=== PATIENT | female | born 1955 | race Caucasian/White ===

== ENCOUNTER → 2020-08-20 11:15 | Outpatient (CLI) | payer MEDICARE, SELFPAY ==
--- NOTE | 2020-08-20 11:26 | XR_ITS ---
PROCEDURE: XR CHEST 2V CLINICAL HISTORY: COUGH COMPARISON: No exams were available for comparison FINDINGS: The cardiomediastinal silhouette and pulmonary vascularity are within normal limits. The lungs are clear without infiltrates, suspicious nodules, or pleural effusions. Minimal midthoracic curvature convex left. IMPRESSION: No acute findings. Dictated by: Gurjit Sánchez MD 08/20/2020 11:51 Gurjit Sánchez MD in [place] 08/20/2020 11:51
== END ==
PROVIDERS: PCP Nurse Practitioner Family; Visit Provider Nurse Practitioner Family
DX: R05 Cough (principal)
CPT/HCPCS: 71046

== ENCOUNTER → 2021-10-19 09:31 | Outpatient (CLI) | payer MEDICARE, SELFPAY ==
--- NOTE | 2021-10-19 09:39 | XR_ITS ---
FINAL REPORT CLINICAL HISTORY: LT KNEE PAIN,LOCALIZED EDEMA..fell in water drain 2 weeks ago FINDINGS: Three views of the left knee reveal no evidence of fracture or dislocation. The bony alignment is normal. The joint spaces are preserved. There is no evidence of joint effusion. There is medial soft tissue swelling. IMPRESSION: Swelling with no acute bony abnormality. Reviewed, Interpreted and Dictated by Valerio Hdz III, MD Transcribed by Jefferson Peña Authenticated and [facility]
== END ==
PROVIDERS: PCP Family Medicine; Visit Provider Nurse Practitioner Family
DX: M25.562 Pain in left knee (principal); R60.0 Localized edema
CPT/HCPCS: 73562

== ENCOUNTER 2024-01-22 16:56 | Emergency (ER) | payer MEDICARE, SELFPAY ==
--- NOTE | 2024-01-22 17:09 | XR_ITS ---
PROCEDURE INFORMATION: Exam: XR Right Hand Exam date and time: 01/22/2024 5:15 PM Age: 69 years old Clinical indication: Injury or trauma; Other: Pin went into finger, unsure if part of pin is still in there or not; Puncture; Right; Index finger; Additional info: Pin stuck in finger TECHNIQUE: Imaging protocol: Radiologic exam of the right hand. Views: 3 or more views. COMPARISON: No relevant prior studies available. FINDINGS: Bones/joints: No acute osseous injury. Mild degenerative changes 1st basal joint. Soft tissues: There is some soft tissue swelling. No radiopaque foreign body is seen. IMPRESSION: No radiopaque foreign body or acute osseous abnormality.
[2024-01-22 17:17] VITALS: BP 166/80; PULSE 67; RESP 16; TEMP 36.6; O2SAT 99; BMI 23.5
--- NOTE | 2024-01-22 17:24 | EXP.UTC ---
Discharge Plan Disposition Patient Disposition: Home, Self-Care Condition: Good Prescriptions Prescriptions: New mupirocin 2 % ointment 1 applic topical TID 7 Days Qty: 15 0RF levofloxacin 500 mg tablet 500 mg PO DAILY Qty: 7 0RF Referrals Follow up/Referrals: Shavon Ching MD [Primary Care Provider] - See instructions Activity Restrictions/Add. Instructions Additional Instructions/Restrictions: Keep the wound clean and dry. Watch the wound for signs of infection, such as redness, swelling, drainage, fever. etc. Take the levaquin (antibiotic) as directed. Take tylenol or ibuprofen for pain. Follow up with your regular doctor. GO TO THE ER FOR ANY WORSENING SYMPTOMS OR CONCERNS. Clinical Impressions Clinical Impression: Puncture wound of right index finger, Need for Tdap vaccination Instructions Patient Instructions: DI for Puncture Wound, Levofloxacin, Tetanus, Diphtheria, Pertussis (Tdap) Vaccine Print Language Print Language: American Discharge ED Provider: Javid Sarkar [facility] [place] General Stated complaint: RT index finger inj Mode of Arrival: Ambulatory Source of Information: Patient Limitations: No Limitations Time Seen by Provider: 01/22/24 17:24 Description of Symptoms (Recalled from Triage Doc. by RN): Reports a pin stuck in finger. HEENT Symptoms (Recalled from RN notes): No Resp Symptoms (Recalled from RN notes): No Skin Symptoms (Recalled from RN notes): Yes MS Symptoms (Recalled from RN notes): No Functional Status (Recalled from RN notes): wnl History of Present Illness Provider Complaint: She states that she was punctured in the tip of her right index finger with a glenna stick pin right before she came in today. She states that she believes that part of the pin is still in her finger. Her tdap is not up to date. Related Data Previous Rx's ?Medication ?Instructions ?Recorded levofloxacin 500 mg tablet 500 mg PO DAILY #7 tabs 01/22/24 mupirocin 2 % topical ointment 1 applic topical TID 7 days #15 01/22/24 grams Allergies Allergy/AdvReac Type Severity Reaction Status Date / Time No Known Allergies Allergy Verified 01/22/24 17:20 Worker's Comp Is this a Worker's Comp case?: No [facility] Disclaimer: The information contained in this section may have been updated after the patient was seen, as this information can be updated by other users. Social History Smoking Status: Never smoker alcohol intake: never current occupational status: retired Travel in the last 8 weeks: None ROS Obtained: Yes All systems reviewed & no additional complaints except as documented Constitutional Constitutional: Denies chills and Denies fever(s) Eyes Eyes: Denies eye discharge ENT Ears, Nose, Mouth, and Throat: Denies dizziness, Denies otalgia and Denies sore throat Cardiovascular Cardiovascular: Denies chest pain Respiratory Respiratory: Denies shortness of breath, Denies chest congestion, Denies cough, Denies stridor and Denies wheezing Gastrointestinal Gastrointestingal: Denies nausea or vomiting Musculoskeletal Musculoskeletal: Reports system reviewed and no additional complaints, except as documented and Denies arthralgias Integumentary/Breasts Skin/Breast: Reports as per HPI Neurologic Neurologic: Denies dizziness and Denies paresthesias Allergic/Immunologic Allergic/Immunologic: Denies wheezing Physical Exam General General appearance: alert and in no apparent distress Head Head exam: atraumatic, normocephalic and normal inspection Eye Eye exam: Present normal appearance, PERRL and EOMI ENT ENT exam: Present normal exam, normal oropharynx, mucous membranes moist, TM's normal bilaterally and normal external ear exam Neck Neck exam: Present normal inspection, full ROM and trachea midline; Absent meningismus or lymphadenopathy Chest Chest inspection: Present normal inspection and symmetric chest wall rise; Absent tenderness Respiratory Respiratory exam: Present normal lung sounds bilaterally; Absent respiratory distress Cardiovascular Cardiovascular exam: Present regular rate and normal rhythm; Absent JVD Abdominal Exam Abdominal exam: Present soft and normal bowel sounds; Absent distention, tenderness or guarding Extremities Exam Extremities exam: Present normal inspection, full ROM and normal capillary refill; Absent calf tenderness Back Exam Back exam: Present normal inspection; Absent tenderness Neurological Exam Neurological exam: Present alert and oriented X3 Psychiatric Psychiatric exam: Present normal affect and normal mood Skin Skin exam: Present other (there is a puncture wound near the tip of her right index finger. there is ecchymosis beneath that finger nail. no foreign body is evident. ) Lymphatic Lymphatic Findings: no adenopathy Medical Decision Making Medical Records Medical records reviewed: No I reviewed the patient's medical records. Screening: Per USPSTF and CDC recommendations, given the prevalence of disease in our region, it is our hospital?s policy to screen for HIV and viral Hepatitis for all patients aged 18 and over and those with ongoing risk factors. Sarbjit Inquiry Pt receiving controlled substance: No Vital Signs: 01/22/24 17:17 Temperature 97.9 F Temperature Source Oral Pulse Rate [Radial] 67 Respiratory Rate 16 Blood Pressure [Right Arm] 166/80 H Blood Pressure Mean [Right Arm] 108 Blood Pressure Source [Right Arm] Automatic Cuff Blood Pressure Position [Right Arm] Sitting 02 Sat by Pulse Oximetry 99 Oxygen Delivery Method Room Air Orders (Tests/Meds): ORDERS Category Date Time Status Hand XR right minimum 3 views [XR hand RT min 3V] Stat Exams 01/22/24 17:09 Ordered Radiology Data #1: Image(s): Hand Image Reviewed: Yes I reviewed the patient's radiology image and Yes I have reviewed radiologist's interpretation Preliminary Findings: Normal/NAD (no foreign body is evident. ) Accession No. : [id number] Patient Name / ID : SLADE NAVARRETE / [id number] Exam Date : 01/22/2024 17:15:27 ( Final ) Study Comment : Sex / Age : F / 69Y Creator : SANTO WAGGONER MD Dictator : Mandarin Tutor : Private Branch Exchange Installer : SANTO WAGGONER MD Approver2 : Report Date : 01/22/2024 17:51:44 My Comment : PROCEDURE INFORMATION: Exam: XR Right Hand Exam date and time: 01/22/2024 5:15 PM Age: 69 years old Clinical indication: Injury or trauma; Other: Pin went into finger, unsure if part of pin is still in there or not; Puncture; Right; Index finger; Additional info: Pin stuck in finger TECHNIQUE: Imaging protocol: Radiologic exam of the right hand. Views: 3 or more views. COMPARISON: No relevant prior studies available. FINDINGS: Bones/joints: No acute osseous injury. Mild degenerative changes 1st basal joint. Soft tissues: There is some soft tissue swelling. No radiopaque foreign body is seen. IMPRESSION: No radiopaque foreign body or acute osseous abnormality. Medical Decision Narrative: I reviewed the radiology images with the ER doctor.
[2024-01-22] MEDS: TET/DIPHTH/PERT-ADULT 0.5ML SYRINGE 0.5 ML IM (18:00)
[2024-01-22] MEDS: levoFLOXacin 500MG TAB 500 MG PO (18:30)
[2024-01-22 18:35] VITALS: BP 166/80; PULSE 67; RESP 16; TEMP 36.6; O2SAT 99
== END 2024-01-22 18:35 | disposition home or self-care (01) ==
PROVIDERS: Emergency Provider Nurse Practitioner Family; PCP Family Medicine
DX: S61.230A Puncture wound without foreign body of right index finger without damage to nail, initial encounter (principal); Z23 Encounter for immunization; W45.8XXA Other foreign body or object entering through skin, initial encounter
CPT/HCPCS: 73130; 90471; 90715; 99204; 99212; G0463

== ENCOUNTER 2024-09-20 07:24 | Outpatient (CLI) | payer MEDICARE, SELFPAY ==
[2024-09-22 10:58] LABS: Adenovirus F 40/41, stool Not Detected (NotDetected); Astrovirus Not Detected (NotDetected); Campylobacter Not Detected (NotDetected); Clostridium Difficile A/B, PCR Not Detected (NotDetected); Cryptosporidium Not Detected (NotDetected); Cyclospora Cayetanesis Not Detected (NotDetected); Entamoeba histolytica Not Detected (NotDetected); Enteroaggregative E coli Not Detected (NotDetected); Enteropathogenic E coli Not Detected (NotDetected); Enterotoxigenic E coli Not Detected (NotDetected); Giardia lamblia Not Detected (NotDetected); Norovirus Not Detected (NotDetected); Plesimonas Shigalloides, PCR Not Detected (NotDetected); Rotavirus A Not Detected (NotDetected); Salmonella, PCR Not Detected (NotDetected); Sapovirus Not Detected (NotDetected); Shiga-like toxin E coli Not Detected (NotDetected); Shigella Enterovasive E coli Not Detected (NotDetected); Vibrio Cholerae Not Detected (NotDetected); Vibrio, PCR Not Detected (NotDetected); Yersinia Entercolitica, PCR Not Detected (NotDetected)
== END 2024-09-20 23:59 | disposition home or self-care (01) ==
LOC: LAB.DROPOF 07:26
PROVIDERS: PCP Family Medicine; Visit Provider Family Medicine
DX: R19.7 Diarrhea, unspecified (principal)
CPT/HCPCS: 87507

== ENCOUNTER 2024-10-10 08:29 | Outpatient (CLI) | payer MEDICARE, SELFPAY ==
--- NOTE | 2024-10-10 08:38 | CT_ITS ---
FINAL REPORT TECHNIQUE: Thin section axial images were obtained through the abdomen after intravenous contrast. Reconstruction images were obtained from the axial data. Exam was performed using dose reduction techniques. CLINICAL HISTORY: DIARRHEA FINDINGS: The lung bases are clear. The liver is homogeneous. The gallbladder is present. The spleen, adrenal glands, and pancreas are unremarkable. There is likely a left parapelvic renal cyst. There is a very mild prominence to the bilateral renal collecting systems without obstructing stone. No renal mass is identified. There is no small bowel obstruction. There is diverticulosis without evidence of diverticulitis. There is no abdominal lymphadenopathy or ascites. There are calcified fibroids in the uterus. There are mildly prominent left adnexal vessels which can be seen with pelvic congestion syndrome. There is no pelvic lymphadenopathy or ascites. No acute osseous abnormalities identified. IMPRESSION: No CT evidence of acute intra-abdominal or intrapelvic abnormality. Fibroid uterus. Prominence to the left adnexal vessels which can be seen with pelvic congestion syndrome. Reviewed, Interpreted and Dictated by Rachele Blancas MD Transcribed by Akosua Jaramillo Authenticated and [facility][1]
[2024-10-10] MEDS: IOPAMIDOL-370 (76%);100ML BOTTLE 75 ML IV (08:54)
[2024-10-10] MEDS: SODIUM CHLORIDE 0.9% 10ML SYR (RAD ONLY) 10 ML IV (08:54)
== END 2024-10-10 23:59 | disposition home or self-care (01) ==
LOC: RAD 08:32
PROVIDERS: PCP Family Medicine; Visit Provider Nurse Practitioner
DX: D25.9 Leiomyoma of uterus, unspecified (principal); N94.89 Other specified conditions associated with female genital organs and menstrual cycle; R19.7 Diarrhea, unspecified
CPT/HCPCS: 74177; Q9967

== ENCOUNTER 2024-11-10 09:44 | Day surgery (SDC) | payer MEDICARE, SELFPAY ==
[2024-11-10 11:14] VITALS: BMI 23.1
[2024-11-10 11:25] VITALS: BP 126/72; PULSE 67; RESP 18; TEMP 36.1; O2SAT 99
--- NOTE | 2024-11-10 11:31 | EXP.ANES.CKL ---
[facility] Disclaimer: The information contained in this section may have been updated after the patient was seen, as this information can be updated by other users. Medical History (Updated 11/10/24 @ 11:21 by Bhupinder Berger RN) Bladder disease HLD (hyperlipidemia) Hypothyroid Surgical History (Updated 11/10/24 @ 11:24 by Bhupinder Berger RN) H/O dilation and curettage History of tonsillectomy Family History (Updated 11/10/24 @ 11:24 by Bhupinder Berger RN) Other Family history of heart disease Social History (Updated 11/10/24 @ 11:25 by Bhupinder Berger RN) Smoking Status: Never smoker alcohol intake: never substance use type: denies use current occupational status: retired Travel in the last 8 weeks?: Inside the [facility] Anesthesia Checklist Patient Identification Patient Identification: Arm Band and Verbal (Name & ) Structural Data Admitted From: Home Planned Operative Procedure/s: colonoscopy Consent for Planned Operative Procedure(s) Verified: Yes Verified Documents: Surgical Consent NPO Status Verified Time NPO: 00:00 Chart Verification Results Verified: None Additional verifications Anesthesia Reactions: No Airway Assessment Mallampati Score:: Class II C-Spine Mobility Assessed: Yes TMJ Mobility Assessed: Yes Dentition: Good Dentition Neurological Assessment Level of Consciousness: Awake, Alert and Appropriate Anesthesia Plan Anesthesia Risk discussed: Yes Anesthesia Plan: Verified ASA Class: II Anesthesia Type: MAC
--- NOTE | 2024-11-10 11:45 | EXP.HP ---
History of Present Illness *Admission Date: 11/10/24 *Reason for visit:: Change in bowel habits *History of present illness: Mrs. Harris is a 69-year-old female who is here for diagnostic colonoscopy secondary to a change in her bowel habits with diarrhea that began in August 2024. She has had fecal urgency and fecal incontinence. She also notes mucus with her bowel movements. She has never had a colonoscopy. The examination is deemed medically necessary for diagnostic colonoscopy. The patient has been seen, interviewed and examined prior to the procedure by both myself and the anesthesia provider. [facility] Disclaimer: The information contained in this section may have been updated after the patient was seen, as this information can be updated by other users. Medical History (Updated 11/10/24 @ 11:54 by Eliceo Solo II, MD) Bladder disease HLD (hyperlipidemia) Hypothyroid Surgical History (Updated 11/10/24 @ 11:24 by Bhupinder Berger RN) H/O dilation and curettage History of tonsillectomy Family History (Updated 11/10/24 @ 11:24 by Bhupinder Berger RN) Other Family history of heart disease Social History (Updated 11/10/24 @ 11:32 by Vik Farrell CRNA) Smoking Status: Never smoker alcohol intake: never substance use type: denies use current occupational status: retired Travel in the last 8 weeks?: Inside the [place] Have you lived/traveled outside US in past 30 days?: No Contact w/someone who lives/traveled outside US past 30 days?: No Exposure to someone with infectious disease in past 14 days?: No Do you have a fever (greater than 100.4 F or 38 C)?: No Have you tested positive for COVID-19?: Yes Exposed to someone with COVID-19 in past 14 days?: No Do you have a sore throat?: No Do you have a cough?: No Do you have any weakness?: No Are you experiencing any nausea/vomitting?: No Do you have any diarrhea?: No Are you experiencing any unusual bleeding?: No Do you have any muscle aches/pain?: No Do you have any abdominal pain?: No Are you experiencing loss of taste or smell?: No Review of Systems Review of Systems Review of systems (narrative): Negative *Cardiovascular Comments: Negative *Gastrointestinal Comments: Negative *Genitourinary Comments: Negative *Musculoskeletal Comments: Negative *Neurologic Comments: Negative Meds Home Medications and Allergies Home Medications ?Medication ?Instructions ?Recorded ?Confirmed ?Type fenofibrate 150 mg capsule 150 mg PO DAILY 11/10/24 11/10/24 History levothyroxine 88 mcg tablet 88 mcg PO DAILY 11/10/24 11/10/24 History oxybutynin chloride 5 mg tablet 5 mg PO DAILY 11/10/24 11/10/24 History trazodone 150 mg tablet 150 mg PO DAILY 11/10/24 11/10/24 History New Prescriptions to Start Prescriptions: Allergies Allergy/AdvReac Type Severity Reaction Status Date / Time No Known Allergies Allergy Verified 11/10/24 11:17 Exam Data for Last 24 hours Vital signs and Labs for Last 24 Hours: Temp Pulse Resp BP Pulse Ox O2 Del Method 97.0 F L 67 18 126/72 99 Room Air 11/10/24 11:25 11/10/24 11:25 11/10/24 11:25 11/10/24 11:25 11/10/24 11:25 11/10/24 11:25 I & O for Last 24 hours: Intake & Output 11/07/24 11/08/24 11/09/24 11/10/24 23:59 23:59 23:59 23:59 Weight 148 lb *Routine HEENT Exam Head: Present normocephalic Eye: Present EOMI and PERRL ENT: Present mucous membranes moist *Routine Neck Exam Neck: Present supple *Routine Respiratory Exam Respiratory: Present CTA bilaterally *Routine Cardiovascular Exam Cardiovascular: Present RRR *Routine Abdominal Exam Abdominal: Present soft and normoactive bowel sounds; Absent tenderness *Routine Rectal Exam Rectal:: deferred *Routine Genitalia Exam Genitalia:: deferred *Routine Extremities Exam Extremities: Absent cyanosis, clubbing or edema *Routine Skin Exam Skin: Present warm; Absent rash *Routine Neurological Exam Neurological: Present alert and oriented X3 Assessment and Plan *Assessment and plan (1) Diarrhea: Status: Acute Category: Medical Code(s): R19.7 - Diarrhea, unspecified (2) Incontinence of feces with fecal urgency: Status: Acute Category: Medical Code(s): R15.9 - Full incontinence of feces; R15.2 - Fecal urgency (3) Change in bowel habits: Status: Acute Category: Medical Code(s): R19.4 - Change in bowel habit (4) Mucus in stool: Status: Acute Category: Medical Code(s): R19.5 - Other fecal abnormalities Plan A/P: 1. Diarrhea/change in bowel habits with fecal urgency and fecal incontinence is the preprocedural diagnosis. The patient also reports mucus with her stool. The patient will be anesthetized/sedated using MAC sedation. The patient has been seen and examined. Cardiac and lung assessment prior to the examination is stable. Proceed with planned diagnostic colonoscopy.
--- NOTE | 2024-11-10 11:55 | P.PCN_ITS ---
[facility] Procedure Note Date: 11/10/24 Time: 12:21 Procedure Note:: Colonoscopy Procedure Report: Colonoscopy with endoscopic mucosal resection (EMR with submucosal injection of Eleview, snare cautery, soft coagulation and Endo Clip placement), cold snare polypectomy and cold biopsies Endoscopist: Eliceo Solo II, MD Referring physician: Josh Ching M.D. Date of Procedure: November 10, 2024 Equipment: Olympus 190 variable stiffness pediatric colonoscope Sedation: MAC sedation Indication: Mrs. Harris is a 69-year-old female who is here for diagnostic colonoscopy secondary to a change in her bowel habits. She began having diarrhea in August 2024 after a bout of flu and at that time she was placed on several new medications for the flu. The patient since then has had 3-4 bowel movements daily with urgency, frequency, loose stools and phlegm/mucus with her bowel movements. She has had fecal incontinence and does wear adult diapers now. She has the bouts of fecal incontinence 2 or 3 times weekly. She reports no rectal bleeding, weight loss or family history of colon cancer. Both of her parents had diverticulosis and one of her parents had diverticulitis. The patient does report a lot of gassiness but reports no bloating, cramps or abdominal pain. This is her first colonoscopy. Procedure: Prior to the procedure, a history and physical exam was performed, and patient's medications and allergies were reviewed. The risks, benefits and alternatives of the sedation and procedure were discussed with the patient. All questions were answered and informed consent was obtained. The patient was brought to the procedure room. Patient identification and proposed procedure were verified by the physician and the nurse. The patient was placed in a left lateral decubitus position and the scope was passed under direct vision. Throughout the procedure, the patient's blood pressure, pulse, and oxygen saturations were monitored continuously. The colonoscopy was accomplished without difficulty. The patient tolerated the procedure well. Findings: On digital rectal examination there was normal rectal tone. There were no external hemorrhoids. The colonoscope was introduced through the anal canal to the rectum and advanced to the cecum. The ileocecal valve and appendiceal orifice were identified. The scope was advanced a short distance into the ileum which appeared grossly normal. The scope was then withdrawn into the colon. There were 2 polyps (ileocecal valve (19 mm) and cecum (9 mm)). The larger polyp was raised using submucosal injection of Eleview. After raising the polyp, the patient was removed into sections with snare cautery. There was some minor heme at the polypectomy site and soft coagulation was applied not only to the base of the polypectomy site but also to the margins to prevent any residual regrowth. Lastly, a single Endo Clip was placed over the polypectomy site with complete closure. The second 9 mm polyp in the cecum was removed via cold snare polypectomy. The remaining ascending and transverse colon and mucosa were gross ly normal. Cold biopsies were taken from both the right and left colon to rule out microscopic colitis. There were scattered diverticuli throughout the descending and sigmoid colon (LEFT colon). The rectum itself was normal. Upon retroflexion within the rectum there were grade 1-2 internal hemorrhoids. The preparation was excellent throughout with Clyde Preparation Score of 9. The cecal time was 17 minutes. Impression: 1. 19 mm ileocecal valve polyp status post EMR removal 2. 9 mm cecal polyp 3. Left-sided diverticulosis 4. Grade 1-2 internal hemorrhoids Plan: I will follow-up the polyp histology and recommend repeat surveillance colonoscopy again in 3 years. I will follow-up the random colon biopsies to rule out microscopic colitis. I will discuss the findings with the patient and family.
[2024-11-10 12:26] VITALS: BP 109/65; PULSE 60; RESP 16; TEMP 36.2; O2SAT 94
[2024-11-10 12:36] VITALS: BP 107/54; PULSE 57; RESP 16; O2SAT 97
[2024-11-10 12:46] VITALS: BP 122/77; PULSE 68; RESP 16; O2SAT 97
[2024-11-10 12:55] VITALS: BP 113/65; PULSE 62; RESP 16; O2SAT 98
== END 2024-11-10 12:57 | disposition home or self-care (01) ==
PROVIDERS: PCP Family Medicine; Visit Provider Internal Medicine Gastroenterology
PROC: 0DJD8ZZ Inspection of Lower Intestinal Tract, Via Natural or Artificial Opening Endoscopic (ICD-10-PCS; CPT 45378; principal; 2024-11-10 11:30)
DX: R19.7 Diarrhea, unspecified (principal); D12.0 Benign neoplasm of cecum; K64.1 Second degree hemorrhoids; K57.30 Diverticulosis of large intestine without perforation or abscess without bleeding; R15.9 Full incontinence of feces; R15.2 Fecal urgency; R19.4 Change in bowel habit; R19.5 Other fecal abnormalities; E78.5 Hyperlipidemia, unspecified; N32.9 Bladder disorder, unspecified; E03.9 Hypothyroidism, unspecified; Z79.890 Hormone replacement therapy; Z79.899 Other long term (current) drug therapy
CPT/HCPCS: 45380; 45381; 45385; J2003; J2704

== ENCOUNTER 2024-12-07 10:25 | Outpatient (CLI) | payer MEDICARE, SELFPAY ==
--- OUTSIDE RECORDS SUMMARY | 2024-10-30 09:43 | XMS_ITS | Encounter Summary ---
Author Organization [facility] Address [address] [place] [address] Care Team Providers Care Government Gauger Name Role Phone Juan Manuel Ching MD Primary Care Provider Reason for Referral * Diagnostic Imaging (Routine) - Closed Specialty Diagnoses / Procedures Referred By Franck t Referred To Contact Radiology Diagnoses Visit for screening mammogram Procedures Mammo Screening Digital Tomosynthesis Bilateral With Juan Manuel Wright MD [address] [place] [address] Phone: tel: fax: Referral ID Status Reason Start Date Expiration Date Visits Re quested Visits Authorized [id number] Closed 10/06/2024 2026 1 1 Reason for Visit * Diagnostic Imaging (Routine) - Closed Specialty Diagnoses / Procedures Referred By Franck barrera Referred To Contact Radiology Diagnoses Visit for screening mammogram Procedures Mammo Screening Digital Tomosynthesis Bilateral With Juan Manuel Wright MD [address] [place] [address] Phone: tel: fax: Referral ID Status Reason Start Date Expiration Date Visits Re quested Visits Authorized [id number] Closed 10/06/2024 2026 1 1 Encounter Details Date Type Department Care Team (Latest Contact Info) Description 10/30/2024 9:43 AM EDT - 10/30/2024 11:59 PM EDT Hospital En[facility] [address] [place] [address] Juan Manuel Ching MD [address] [place] [address] Visit for screening mammogram Discharge Disposition: Home or Self Care Social History Tobacco Use Types Packs/Day Years Used Date Smoking Tobacco: Never Assessed Comments No Sex and Gender Information Value Date Recorded Sex Assigned at Not on file Legal Sex Female 12:52 PM EDT Gender Identity Not on file Sexual Orientation Not on file documented as of this encounter Plan of Treatment Not on file documented as of this encounter Procedures Procedure Name Priority Date/Time Associated Diagnosis Comments MAMMO SCREENING DIGITAL TOMOSYNTHESIS BILATERAL W CAD Routine 10/30/2024 10:12 AM EDT Visit for screening mammogram documented in this encounter Results * Mammo Screening Digital Tomosynthesis Bilateral With CAD (10/30/2024 10:12 AM EDT) Anatomical Region Laterality Modality Breast N/A Mammography 11/04/2024 11:5 3 AM EDT Impressions 11/04/2024 11:53 AM EDT Negative bilateral mammogram. RECOMMENDATION: Continue annual screening mammography. BI-RADS CATEGORY 1, NEGATIVE. CAD was utilized. The standard false-negative rate of mammography is between 10% and 25%. Complex patterns or increased breast density will markedly elevate the false-negative rate of mammography. A letter, in lay terminology, with the results of this exam will be mailed to the patient. 11/04/2024 11:[address] Andreina Mcgee MD on Narrative 11/04/2024 11:53 AM EDT DIGITAL SCREENING MAMMOGRAM WITH TOMOSYNTHESIS HISTORY: Screening Mammography. Low dose full field digital breast tomosynthesis imaging was performed with 2D and 3D acquisitions consisting of bilateral CC and MLO views. Examination is compared to prior examination dating back to 02/19/2013. Examination is read in conjunction with computer aided detection. FINDINGS: The breast tissue is heterogeneously dense, which may obscure small masses. No suspicious masses, microcalcifications or areas of architectural distortion are present. us Juan Manuel Ching MD IMG MAMMOGRAPHY ORDERABLES Elissa l Result documented in this encounter Visit Diagnoses Diagnosis Visit for screening mammogram documented in this encounter Care Teams Government Gauger Relationship Specialty Start Date End Date Juan Manuel Ching MD [address] [place] [phone] PCP - General Family Medicine 12/18/18 documented as of this encounter
--- OUTSIDE RECORDS SUMMARY | 2024-12-09 10:51 | XMS_ITS | Clinical Summary ---
Author Organization [facility] Address [address] [place] [address] Care Team Providers Care Topology Teacher Name Role Phone Juan Manuel Ching MD Primary Care Provider [phone] Allergies No known active allergies Encounters Date Type Department Care Team Description 10/30/2024 9:43 AM EDT - 10/30/2024 11:59 PM EDT Hospital Encounter [facility] [address] [place] [address] Juan Manuel Ching MD Visit for screening mammogram Discharge Disposition: Home or Self Care 10/30/2024 Travel from Last 3 Months Family History Medical History Relation Name Comments Breast cancer Maternal Aunt Ovarian cancer Neg Hx Relation Name Status Comments Maternal Aunt Social History Tobacco Use Types Packs/Day Years Used Date Smoking Tobacco: Never Assessed Comments No Sex and Gender Information Value Date Recorded Sex Assigned at Not on file Legal Sex Female 12:52 PM EDT Gender Identity Not on file Sexual Orientation Not on file Plan of Treatment Health Maintenance Due Date Last Done Comments ANNUAL PHYSICAL 1955 DXA SCAN 1955 HEPATITIS C SCREENING 1955 COLOGUARD 01/06/2000 COLON CANCER SCREENING 5 YEA R SIGMOIDOSCOPY 01/06/2000 COLONOSCOPY 01/06/2000 COLORECTAL CANCER SCREENING 01/06/2000 CT COLONOGRAPHY 01/06/2000 FECAL OCCULT BLOOD TEST 01/06/2000 FIT Testing (1 year) 01/06/2000 Pneumococcal Vaccine 50+ (1 of 1 - PCV) 2005 ZOSTER VACCINE (1 of 2) 2005 COVID-19 Vaccine ( - 2024-25 season) 01/06/202407/2020, 02/07/2021 INFLUENZA VACCINE 02/04/2025 MAMMOGRAM 10/30/2026 10/30/2024, 01/28/2019 TDAP/TD VACCINES (3 - Td or Tdap) 01/21/2034 024, 07/10/1996 Procedures Procedure Name Priority Date/Time Associated Diagnosis Comments MAMMO SCREENING DIGITAL TOMOSYNTHESIS BILATERAL W CAD Routine 10/30/2024 10:12 AM EDT Visit for screening mammogram from Last 3 Months Results * Mammo Screening Digital Tomosynthesis Bilateral [...] Manuel Ching MD IMG MAMMOGRAPHY ORDERABLES Elissa bella Result from Last [address] [place] [address] [employer] OPT[employer] MEDICARE A & B Care Teams Topology Teacher Relationship Specialty Start Date End Date Juan Manuel Ching MD [address] [place] [address] PCP - General Family Medicine 12/18/18
--- OUTSIDE RECORDS SUMMARY | 2024-12-09 10:51 | XMS_ITS | Encounter Summary ---
Author Organization [facility] Address [address] [place] [address] Care Team Providers Care Tree Driller Name Role Phone Juan Manuel Ching MD Primary Care Provider [phone] Encounter Details Date Type Department Care Team (Latest Contact Info) Description 10/30/2024 Travel Social History Tobacco Use Types Packs/Day Years Used Date Smoking Tobacco: Never Assessed Comments No Sex and Gender Information Value Date Recorded Sex Assigned at Not on file Legal Sex Female 12:52 PM EDT Gender Identity Not on file Sexual Orientation Not on file documented as of this encounter Plan of Treatment Not on file documented as of this encounter Visit Diagnoses Not on filedocumented in this encounter Care Teams Tree Driller Relationship Specialty Start Date End Date Juan Manuel Ching MD [address] [id number] PCP - General Family Medicine 12/18/18 documented as of this encounter
== END 2024-12-07 23:59 | disposition home or self-care (01) ==
LOC: LAB.DROPOF 12-09 10:49
PROVIDERS: PCP Nurse Practitioner Family; Visit Provider Nurse Practitioner Family
DX: R30.0 Dysuria (principal)
CPT/HCPCS: 87086; 87088; 87186